=== PATIENT | male | born 1970 | race Caucasian/White ===

== ENCOUNTER 2017-10-10 17:22 | Emergency (ER) | payer SELFPAY ==
[2017-10-10] MEDS ORDERED: Acetaminophen 500 MG Tab PO ONE (18:14)
--- NOTE | 2017-10-10 19:30 | EDM.PDOC ---
ED HPI GENERAL MEDICAL PROBLEM - General Chief Complaint: Fever Stated Complaint: DIZZY/CHILLS/COUGH/NAUSEA/FEVER Time Seen by Provider: 10/10/17 18:20 Source of Information: Reports: Patient History Limitations: Reports: No Limitations - History of Present Illness INITIAL COMMENTS - FREE TEXT/NARRATIVE: HISTORY AND PHYSICAL: History of present illness: [Patient comes to the emergency room complaining of fever, not feeling well, cough, and headache. His symptoms have been present for the past 2 days. Is coughing up thick green sputum which also developed in the last couple of days. He has not checked his temperature today but admits to having episodes of chills and sweating.. Has felt so poorly today that he was not able to finish his shift at work. Couple episodes of nausea this afternoon but did not vomit. States that he smokes at least one pack of cigarettes per day. Does not have a local PCP. Has not taken any medications for his symptoms. Denies sore throat, earaches, chest pain, shortness of breath and difficulty breathing. No abdominal pain, diarrhea or constipation. Admits to having some body aches and headache. No blurred vision or double vision. No dizziness.] Review of systems: As per history of present illness and below otherwise all systems reviewed and negative. Past medical history: As per history of present illness and as reviewed below otherwise noncontributory. Surgical history: As per history of present illness and as reviewed below otherwise noncontributory. Social history: No reported history of drug or alcohol abuse. Family history: As per history of present illness and as reviewed below otherwise noncontributory. Physical exam: HEENT: Atraumatic, normocephalic. Edentulous to upper gums. Throat is clear. No erythema or swelling. No exudate. Face is nontender with palpation. Neck, supple , no lymphadenopathy. Scar present from thyroidectomy. Lungs: Clear to auscultation, breath sounds equal bilaterally. No wheezing crackles or rales. Heart: S1S2, regular rate and rhythm. Abdomen: Soft, nondistended, nontender. Negative for masses, guarding or rebound. Genitourinary: Deferred. Rectal: Deferred. Extremities: Atraumatic, full range of motion. Neurovascular unremarkable. Neuro: Awake, alert, oriented. Motor and sensory unremarkable throughout. Exam nonfocal. Diagnostics: [Influenza A and B, chest x-ray] Therapeutics: [Tylenol 1 g by mouth] Impression: [Upper respiratory infection] Plan: [Discussed influenza swab and normal chest x-ray with patient. Discussed with him that his symptoms may be viral in nature but due to his history of smoking and thick green sputum will treat with azithromycin 500 mg daily for 5 days. 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 Strict return precautions are reviewed. He is in agreement with today's plan.] Definitive disposition and diagnosis as appropriate pending reevaluation and review of above. - Related Data Allergies Allergy/AdvReac Type Severity Reaction Status Date / Time Penicillins Allergy Other Verified 10/10/17 17:43 Home Meds: Home Meds Azithromycin 500 mg PO DAILY 5 Days #5 tablet 10/10/17 [Rx] Past Medical History Other Respiratory History: chronic smoker - Past Surgical History HEENT Surgical History: Reports: Tonsillectomy Endocrine Surgical History: Reports: Thyroidectomy Social & Family History - Family History Family Medical History: Noncontributory - Tobacco Use Smoking Status *Q: Current Every Day Smoker Years of Tobacco use: 39 Packs/Tins Daily: 1 - Caffeine Use Caffeine Use: Reports: Energy Drinks, Soda - Recreational Drug Use Recreational Drug Use: No ED ROS GENERAL - Review of Systems Review Of Systems: ROS reveals no pertinent complaints other than HPI. ED EXAM, SEPSIS - Physical Exam Exam: See Below Course - Vital Signs Last Recorded V/S: Last Vital Signs Temp 100.9 F H 10/10/17 19:17 Pulse 100 10/10/17 19:17 Resp 18 10/10/17 19:17 BP 110/75 10/10/17 17:41 Pulse Ox 98 10/10/17 19:17 - Orders/Labs/Meds Orders: Active Orders 24 hr Category Date Time Status Chest 2V [CR] Stat Exams 10/10/17 18:29 Taken Meds: Medications Discontinued Medications Generic Name Dose Route Start Last Admin Trade Name Clare PRN Reason Stop Dose Admin Acetaminophen 1,000 mg 10/10/17 18:14 10/10/17 18:26 Tylenol Extra Strength PO 10/10/17 18:15 1,000 mg ONETIME ONE Administration Departure - Departure Time of Disposition: 19:30 Disposition: Home, Self-Care 01 Condition: Good Clinical Impression: URI (upper respiratory infection) - Discharge Information Prescriptions: Azithromycin 500 mg PO DAILY 5 Days #5 tablet Instructions: Upper Respiratory Infection, Adult, [id number] Referrals: PCP,None [Primary Care Provider] - Forms: ED Department Discharge Additional Instructions: The following information is given to patients seen in the emergency department who are being discharged to home. This information is to outline your options for follow-up care. We provide all patients seen in our emergency department with a follow-up referral. The need for follow-up, as well as the timing and circumstances, are variable depending upon the specifics of your emergency department visit. If you don't have a primary care physician on staff, we will provide you with a referral. We always advise you to contact your personal physician following an emergency department visit to inform them of the circumstance of the visit and for follow-up with them and/or the need for any referrals to a consulting specialist. The emergency department will also refer you to a specialist when appropriate. This referral assures that you have the opportunity for follow-up care with a specialist. All of these measure are taken in an effort to provide you with optimal care, which includes your follow-up. Under all circumstances we always encourage you to contact your private physician who remains a resource for coordinating your care. When calling for follow-up care, please make the office aware that this follow-up is from your recent emergency room visit. If for any reason you are refused follow-up, please contact the [facility] emergency department at and asked to speak to the emergency department charge nurse. [facility] [address] [place] [id number] Establish care with a local primary care provider at the clinic listed above. Alternate Tylenol with ibuprofen as needed for fever or discomfort, rest, push fluids. Take antibiotic as prescribed. Return to ER as needed as discussed. - My Orders Last 24 Hours: My Active Orders 10/10/17 18:29 Chest 2V [CR] Stat - Assessment/Plan Last 24 Hours: My Active Orders 10/10/17 18:29 Chest 2V [CR] Stat
--- NOTE | 2017-10-12 06:19 | CR ---
EXAM DATE: 10/10/17 PATIENT'S AGE: 47 Patient: CANDICE ORTIZ Facility: [place], [place] Site . Site : [id number] Study: XRay Chest [id number]/[id number] 6:49:44 PM Ordering Physician: Doctor Bliss Final Report: INDICATION: Chest pain, cough and shortness of breath TECHNIQUE: Chest 2 views COMPARISON: None FINDINGS: Cardiovascular and mediastinum: Heart size and vasculature are normal in caliber and appearance. Lungs and pleural spaces: Lungs are clear. No sign of infiltrate or mass. No sign of pleural effusion. No pneumothorax. Bones and soft tissues: No significant findings. IMPRESSION: No acute or significant findings. Dictated by Milo Avery MD @ 10/10/2017 6:51:41 PM Dictated by: Milo Avery MD @ 10/10/2017 18:51:51 (Electronic Signature) MTDD
== END 2017-10-10 19:37 | disposition home or self-care (01) ==
LOC: MW.ED 17:22
DX: J06.9 Acute upper respiratory infection, unspecified (principal); F17.210 Nicotine dependence, cigarettes, uncomplicated; Z79.2 Long term (current) use of antibiotics; Z88.0 Allergy status to penicillin
CPT/HCPCS: 71046; 87804; 99283; A9270